=== PATIENT | male | born 1925 | race Caucasian/White ===

== ENCOUNTER 2017-04-25 16:00 | Emergency (ER) | payer MEDICARE, BC ==
[~2017-04-25] VITALS: Ht 177.8 cm; Wt 117.9 kg
[~2017-04-25 16:00] MED LIST: ALFU10 PO; ATOR20 PO; Advil200 M1 PO; B-122500 MCG SL; CHOL10002 PO; CIPR500 PO; CLOP75 PO; Co Q-10300 MG PO; Glucophage1000 MG PO; LISI5 PO; METO25ER; METO50ER PO; PANT40 PO
[2017-04-25 16:41] LABS: BASOPHILS ABSOLUTE AUTO 0.04 K/mm3 (0.00-0.23); BASOPHILS PERCENT AUTO 0 % (0-2); EOSINOPHILS ABSOLUTE AUTO 0.07 K/mm3 (0.00-0.68); EOSINOPHILS PERCENT AUTO 1 % (0-6); Hematocrit 42.7 % (37.0-53.0); Hemoglobin 14.4 g/dL (13.5-17.5); IMMATURE GRAN ABSOLUTE AUTO 0.03 K/mm3 (0.00-0.10); IMMATURE GRAN PERCENT AUTO 0 % (0-1); LYMPHOCYTES PERCENT AUTO 19 % (21-46); MONOCYTES ABSOLUTE AUTO 0.75 K/mm3 (0.16-1.47); MONOCYTES PERCENT AUTO 7 % (4-13); Mean Corpuscular HGB Conc 33.7 g/dL (31.5-36.5); Mean Corpuscular Volume 89 fL (80-100); Mean Platelet Volume 11.4 fL (9.1-12.4); NEUTROPHILS ABSOLUTE AUTO 7.84 K/mm3 (1.96-9.15); NEUTROPHILS PERCENT AUTO 73 % (41-73); Platelet Count 205 K/mm3 (150-400); RDW Coefficient Variation 12.1 % (11.7-14.2); RDW Standard Deviation 39.8 fL (35.1-46.3); White Blood Cell Count 10.73 K/mm3 (4.00-11.30)
[2017-04-25] MEDS ORDERED: TAMS.4ER PO (16:41)
[2017-04-25] MEDS ORDERED: FINA5 PO (16:41)
[2017-04-25 16:42] LABS: Source, Urine Clean Catch
[2017-04-25] MEDS ORDERED: Tylenol325 MG PO (16:42)
[2017-04-25] MEDS ORDERED: NASACORT10.8 ML (16:43)
[2017-04-25 16:50] LABS: Bilirubin, Urine Neg (Neg); Blood, Urine Neg (Neg); Glucose Qualitative, Urine Neg (Neg); Ketones, Urine Neg (Neg); Leukocyte Esterase, Urine 2+ (Neg); Nitrite, Urine Neg (Neg); Protein, Urine 2+ (Neg); Urobilinogen, Urine NORM (Normal)
[2017-04-25 16:56] LABS: Appearance, Urine Clear (Clear); Color, Urine Pale Yellow (P-Yellow)
[2017-04-25 16:58] LABS: Bacteria Few /hpf; Red Blood Cells, Urine 0-2 /hpf (0-2); Squamous Epithelial Cells Few /hpf (Few)
[2017-04-25 17:17] LABS: Alanine Aminotransfer (ALT/SGP 20 U/L (12-78); Albumin, Blood 3.5 g/dL (3.4-5.0); Albumin/Globulin Ratio 1.1 (0.8-1.8); Alk Phos 81 U/L (50-136); Anion Gap 9 mmol/L (6-16); Aspartate Aminotrans (AST/SGOT 16 U/L (12-37); Bilirubin, Total 0.4 mg/dL (0.1-1.0); Blood Urea Nitrogen 24 mg/dL (8-24); Bun/Creatinine Ratio 18.9 (12.0-20.0); CO2, Blood 21 mmol/L (21-32); Calcium, Blood 8.7 mg/dL (8.5-10.1); Chloride, Blood 103 mmol/L (98-108); Creatinine, Blood 1.27 mg/dL (0.60-1.20); Globulin, Blood 3.2 g/dL (2.2-4.0); Glomerular Filtration Rate 57 (60-); Glucose, Blood 120 mg/dL (70-99); Potassium, Blood 5.1 mmol/L (3.5-5.5); Sodium, Blood 133 mmol/L (136-145); Total Protein, Blood 6.7 g/dL (6.4-8.2)
[2017-04-25 18:49] LABS: Troponin I <0.015 ng/mL (0.000-0.040)
== END 2017-04-25 19:25 | disposition home or self-care (01) ==
LOC: ER 16:00
PROVIDERS: Physician Assistant
DX: R53.1 Weakness (principal); I10 Essential (primary) hypertension; E78.5 Hyperlipidemia, unspecified; E11.9 Type 2 diabetes mellitus without complications; Z88.5 Allergy status to narcotic agent; Z88.8 Allergy status to other drugs, medicaments and biological substances; Z79.899 Other long term (current) drug therapy; Z87.891 Personal history of nicotine dependence
CPT/HCPCS: 36415; 70450; 71046; 80053; 81001; 84484; 85025; 87086; 93005; 93010; 99284